=== PATIENT | female | born 1970 | race Caucasian/White ===

== ENCOUNTER 2017-04-09 07:07 | Day surgery (SDC) | payer OTHER ==
[~2017-04-09 07:07] MED LIST: Lactated Ringers 1,000 ML IV SCH; Lidocaine 1%/Sod Bicarbonate in NS 8.4% 1 ML Syringe IDERM PRN; Sodium Chloride 0.9% 10 ML Syringe FLUSH PRN
[2017-04-09] MEDS ORDERED: Bupivacaine 0.5% 30 ML SDV ONE ×3 (07:24→07:25)
[2017-04-09] MEDS ORDERED: Iodine/Sodium Iodide 2% Tincture 30 ML Bottle ONE (07:24)
[2017-04-09] MEDS ORDERED: Midazolam 1 MG/ML 2 ML SDV ONE (07:39)
[2017-04-09] MEDS ORDERED: Propofol 200 MG/20 ML SDV ONE (07:39)
[2017-04-09] MEDS ORDERED: fentaNYL 250 MCG/5 ML SDV ONE (07:39)
--- NOTE | 2017-04-09 07:40 | PCM.PREANE ---
Preanesthetic Assessment - Procedure Proposed Procedure: I & D abscess groin/mons - Anesthesia/Transfusion/Family Hx Anesthesia History: Prior Anesthesia Without Reaction (on epidural history) Family History of Anesthesia Reaction: No Transfusion History: No Prior Transfusion(s) Intubation History: Unknown - Review of Systems General: Fever (r/t infected mass ) Pulmonary: Other (undiagnosised suspected SALOME ) Cardiovascular: No Symptoms Gastrointestinal: Other (always having GERD ) Neurological: No Symptoms Other: Reports: None - Physical Assessment NPO Status Date: 04/08/17 NPO Status Time: 09:00 Pulse: 95 O2 Sat by Pulse Oximetry: 95 Respiratory Rate: 16 Blood Pressure: 159/105 Temperature: 37.3 C Height: 1.68 m Weight: 109.225 kg ASA Class: 3 Mental Status: Alert & Oriented x3 Airway Class: Mallampati = 3 Dentition: Reports: Normal Dentition Thyro-Mental Finger Breadths: 3 Mouth Opening Finger Breadths: 5 ROM/Head Extension: Full (with 2 chipped teeth upper and lower) Lungs: Clear to Auscultation, Normal Respiratory Effort Cardiovascular: Regular Rate, Regular Rhythm - Lab Values: Laboratory Last Values Urine HCG, Qual Negative (NEGATIVE) 04/09/17 07:15 - Allergies Allergies/Adverse Reactions: Allergies Allergy/AdvReac Type Severity Reaction Status Date / Time amoxicillin Allergy Cannot Verified 04/08/17 14:55 Remember bee pollen Allergy Cannot Verified 04/08/17 14:55 Remember - Blood Blood Available: No - Acknowledgements Anesthesia Type Planned: General Anesthesia Pt an Appropriate Candidate for the Planned Anesthesia: Yes Alternatives and Risks of Anesthesia Discussed w Pt/Guardian: Yes Pt/Guardian Understands and Agrees with Anesthesia Plan: Yes PreAnesthesia Questionnaire HEENT History: Reports: Allergic Rhinitis, Other (See Below) Other HEENT History: nasal congestion Cardiovascular History: Reports: Hypertension Respiratory History: Reports: Sleep Apnea Gastrointestinal History: Reports: None 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 (See Below) Other OB/BYN History: , genintal herpes, CINIII Musculoskeletal History: Reports: None Neurological History: Reports: None Psychiatric History: Reports: None Endocrine/Metabolic History: Reports: Obesity/BMI 30+ Hematologic History: Reports: None Immunologic History: Reports: None Oncologic (Cancer) History: Reports: None Dermatologic History: Reports: Cellulitis - Past Surgical History Head Surgeries/Procedures: Reports: None Cardiovascular Surgical History: Reports: None Respiratory Surgical History: Reports: None GI Surgical History: Reports: None Female Surgical History: Reports: Section, Cervical Cryotherapy Male Surgical History: Reports: None Endocrine Surgical History: Reports: None Neurological Surgical History: Reports: None Musculoskeletal Surgical History: Reports: None Oncologic Surgical History: Reports: None - SUBSTANCE USE Smoking Status *Q: Former Smoker Recreational Drug Use History: No - HOME MEDS Home Medications: Home Meds Acyclovir [Zovirax 5% Oint] 1 applic TOP QID 04/08/17 [History] Benzonatate [Benzonatate] 100 mg PO TID 04/08/17 [History] Cephalexin [Cephalexin] 500 mg PO QID 04/08/17 [History] EPINEPHrine [Epipen] 0.3 ml IM ONETIME PRN 04/08/17 [History] Fluticasone Propionate [Flonase Allergy Relief] 1 spray NASBOTH DAILY 04/08/17 [ History] Hydrochlorothiazide [Hydrochlorothiazide] 25 mg PO DAILY 04/08/17 [History] Losartan [Cozaar] 50 mg PO DAILY 04/08/17 [History] valACYclovir HCl [valACYclovir] 1,000 mg PO DAILY 04/08/17 [History] - CURRENT (IN HOUSE) MEDS Current Meds: Current Medications Lactated Ringer's (Ringers, Lactated) 1,000 mls @ 125 mls/hr IV ASDIRECTED JASSI Stop: 04/09/17 23:00 Lidocaine/Sodium Bicarbonate (Buffered Lidocaine 1% In Ns 8.4%) 0.25 ml IDERM ONETIME PRN PRN Reason: Prior to IV Start Stop: 04/09/17 18:00 Sodium Chloride (Saline Flush) 10 ml FLUSH ASDIRECTED PRN PRN Reason: Keep Vein Open Stop: 04/09/17 18:00 Discontinued Medications Fentanyl (Sublimaze) Confirm Administered Dose 250 mcg .ROUTE .STK-MED ONE Stop: 04/09/17 07:40 Lidocaine HCl (Xylocaine-Mpf 1%) Confirm Administered Dose 4 mls @ as directed .ROUTE .STK-MED ONE Stop: 04/09/17 07:43 Midazolam HCl (Versed 1 Mg/Ml) Confirm Administered Dose 2 mg .ROUTE .STK-MED ONE Stop: 04/09/17 07:40 Propofol (Diprivan 20 Ml) Confirm Administered Dose 400 mg .ROUTE .STK-MED ONE Stop: 04/09/17 07:40 Rocuronium Ebony (Zemuron) Confirm Administered Dose 50 mg .ROUTE .STK-MED ONE Stop: 04/09/17 07:46
[2017-04-09] MEDS ORDERED: Lidocaine 1% 4 ML ONE (07:42)
[2017-04-09] MEDS ORDERED: Rocuronium 50 MG/5 ML Vial ONE (07:45)
[2017-04-09] MEDS ORDERED: Ketorolac 30 MG/ML SDV ONE (08:37)
[2017-04-09] MEDS ORDERED: Ketamine 500 mg/10 ML MDV ONE (08:37)
[2017-04-09] MEDS ORDERED: Dexamethasone 4 MG/ML 5 ML MDV ONE (08:38)
[2017-04-09] MEDS ORDERED: Ondansetron 4 MG/2 ML SDV ONE (08:38)
--- NOTE | 2017-04-09 08:50 | PCM.OPNOTE ---
- General Post-Op/Procedure Note Date of Surgery/Procedure: 04/09/17 Operative Procedure(s): Incision and drainage complicated abscess [id number] Pre Op Diagnosis: Right groin (mons) cellulitis and abscess with multiple loculations Post-Op Diagnosis: Same Anesthesia Technique: General ET Tube Primary Surgeon: Jm Buchanan Secondary Surgeon: Marleny Calderon Anesthesia Provider: Yolanda Abdi Metal Stud Framer: Sha Jc (RAAD) Reason Metal Stud Framer Was Necessary: Asst. surgery decrease comorbidity and comortality Role of Metal Stud Framer: Asst. surgery decrease comorbidity and comortality Fluid Replacement, Intraop: 1,000 Output, Urine Amount: 0 EBL in mLs: 5 Drain/Tube Comments:: Iodoform gauze left in place with a sterile safety pin and 2 x 2 gauze Complications: None Condition: Good Free Text/Narrative:: Patient transported to the operating room and placed under general anesthesia in low dorsal lithotomy position and prepared and draped in a sterile fashion. SCDs in place and functioning prior surgery. Patient given Mefoxin 2 g intravenously prior surgery. Timeout performed confirming name, date of and procedure as incision and drainage of abscess cellulitis. The patient had Betadine poured over the affected area. Utilizing Crile clamp the small less than one by one milliliter opening was probed and approximately 2 cm opening obtained to allow drainage of the abscess cultures for aerobic and anaerobic bacteria taken. Irrigation with 3 L of saline with 9 mL of Betadine utilized. Order form gauze was then placed in the incision with sterile safety pin and 2 x 2 gauze. Sponge needle pack asthma sharp count correct 2. Patient transported postanesthesia care unit in satisfactory condition Given Tylenol 3 15 one or 2 by mouth every 6 hours when necessary pain maintain dressing on incision and return to clinic for follow-up on Wednesday04/12/17.
[2017-04-09] MEDS ORDERED: Ondansetron 4 MG/2 ML SDV IVPUSH PRN (09:03)
[2017-04-09] MEDS ORDERED: diphenhydrAMINE 50 MG/ML SDV IVPUSH PRN (09:03)
[2017-04-09] MEDS ORDERED: HYDROmorphone 0.5 MG/0.5 ML Syringe IVPUSH PRN (09:03)
[2017-04-09] MEDS ORDERED: fentaNYL 100 MCG/2 ML SDV IVPUSH PRN (09:03)
--- NOTE | 2017-04-09 09:05 | PCM.POSTAN ---
POST ANESTHESIA ASSESSMENT - MENTAL STATUS Mental Status: Alert - VITAL SIGNS Pulse Rate: 100 SaO2: 96 Resp Rate: 12 Blood Pressure: 141/92 Temperature: 99.1 C - RESPIRATORY Respiratory Status: Respiratory Rate WNL, Airway Patent, O2 Saturation Stable - CARDIOVASCULAR CV Status: Pulse Rate WNL, Blood Pressure Stable - GASTROINTESTINAL GI Status: No Symptoms - PAIN Pain Score: 2 - POST OP HYDRATION Hydration Status: Adequate & Stable
--- NOTE | 2017-04-09 10:23 | PCM48HPAN ---
Post Anesthesia Note - EVALUATION WITHIN 48HRS OF ANESTHETIC Vital Signs in Normal Range: Yes Patient Participated in Evaluation: Yes Respiratory Function Stable: Yes Airway Patent: Yes Cardiovascular Function Stable: Yes Hydration Status Stable: Yes Pain Control Satisfactory: Yes Nausea and Vomiting Control Satisfactory: Yes Mental Status Recovered: Yes Pulse Rate: 100 Resp Rate: 18 Temperature: 99.1 C Blood Pressure: 141/92
[2017-04-09] MEDS ORDERED: Acetaminophen/Codeine 300-30 MG Tab PO ONE (10:30)
[2017-04-09] MEDS ORDERED: Lactated Ringers 1,000 ML ONE (11:34)
== END 2017-04-09 10:50 | disposition home or self-care (01) ==
LOC: JD.SDS 07:07
PROVIDERS: ATTEND Obstetrics & Gynecology
DX: L02.214 Cutaneous abscess of groin (principal); L03.314 Cellulitis of groin; J30.9 Allergic rhinitis, unspecified; I10 Essential (primary) hypertension; G47.30 Sleep apnea, unspecified; E66.9 Obesity, unspecified; Z88.1 Allergy status to other antibiotic agents; Z91.09 Other allergy status, other than to drugs and biological substances; Z68.30 Body mass index [BMI] 30.0-30.9, adult; Z79.51 Long term (current) use of inhaled steroids; Z79.899 Other long term (current) drug therapy
CPT/HCPCS: 10061; 36415; 81025; 83036; 85025; 86850; 86900; 86901; 87075; 87205; A9270; J0694; J1100; J1170; J1885; J2250; J2405; J3010; J7120; J2704

== ENCOUNTER 2024-07-07 07:57 | Emergency (ER) | payer OTHER ==
[2024-07-07] MEDS: Ondansetron 4 MG/2 ML SDV IVPUSH ONE ×2 (08:46→11:20)
[2024-07-07] MEDS: Sodium Chloride 0.9% 500 ML IV SCH (08:46)
[2024-07-07] MEDS: HYDROmorphone 1 MG/ML Syringe IVPUSH ONE ×2 (08:46→10:55)
[2024-07-07 08:49] LABS: BASOPHILS PERCENT AUTO 0.3 % (0.0-1.0); HEMATOCRIT 41.8 % (37.0-47.0); HEMOGLOBIN 14.8 gm/dl (12.0-16.0); IMMATURE GRAN ABSOLUTE AUTO 0.09 K/mm3 (0.00-0.05); IMMATURE GRAN PERCENT AUTO 0.9 % (0.0-0.4); LYMPHOCYTES ABSOLUTE AUTO 0.9 K/mm3 (1.0-4.8); LYMPHOCYTES PERCENT AUTO 8.7 % (24.0-44.0); MEAN CORPUSCULAR HEMOGLOBIN 34.5 pg (28.0-32.0); MEAN CORPUSCULAR HGB CONC 35.4 g/dl (32.0-36.0); MEAN CORPUSCULAR VOLUME 97.4 fl (83.0-99.0); MEAN PLATELET VOLUME 9.8 fl (9.4-12.3); MONOCYTES PERCENT AUTO 10.1 % (0.0-8.0); NEUTROPHILS ABSOLUTE AUTO 8.2 K/mm3 (1.8-7.7); PLATELET COUNT,PLT 209 K/mm3 (150-400); RED BLOOD CELL COUNT 4.29 M/mm3 (4.10-5.30); WHITE BLOOD CELL COUNT,WBC 10.23 K/mm3 (3.9-11.3)
[2024-07-07 09:06] LABS: ANION GAP 20.7 (5-15); BUN/CREATININE RATIO 8.4 (14-18); CALCIUM 9.7 mg/dL (8.5-10.1); CREATININE 2.5 mg/dL (0.55-1.02); EST CRCL DRUG DOSING (CG) 23.42 mL/min; POTASSIUM,K 3.7 mEq/L (3.5-5.1)
[2024-07-07] MEDS: Propofol 200 MG/20 ML SDV IVPUSH ONE (09:23)
[2024-07-07] MEDS: Ondansetron 4 MG/2 ML SDV ONE (11:23)
== END 2024-07-07 11:33 | disposition home or self-care (01) ==
LOC: JD.ED 07:57
DX: S82.891A Other fracture of right lower leg, initial encounter for closed fracture (principal); I10 Essential (primary) hypertension; K21.9 Gastro-esophageal reflux disease without esophagitis; E11.9 Type 2 diabetes mellitus without complications; E66.9 Obesity, unspecified; Z86.16 Personal history of COVID-19; Z79.899 Other long term (current) drug therapy; Z91.030 Bee allergy status; Z88.5 Allergy status to narcotic agent; Z88.0 Allergy status to penicillin; W19.XXXA Unspecified fall, initial encounter
CPT/HCPCS: 27788; 36415; 73590; 73600; 80048; 85025; 96361; 96374; 96375; 96376; 99152; 99284; J1171; J2405; J2704; J7030

== ENCOUNTER 2024-07-20 07:15 | Day surgery (SDC) | payer OTHER ==
[~2024-07-20 07:15] MED LIST changes: -Lactated Ringers 1,000 ML IV SCH; -Lidocaine 1%/Sod Bicarbonate in NS 8.4% 1 ML Syringe IDERM PRN; +Sodium Chloride 0.9% 10 ML Syringe FLUSH SCH
[2024-07-20] MEDS ORDERED: Sodium Chloride 0.9% 100 ML IV ONE (07:16)
[2024-07-20] MEDS ORDERED: Lactated Ringers 1,000 ML ONE (07:17)
[2024-07-20] MEDS ORDERED: Midazolam 1 MG/ML 2 ML SDV ONE (07:17)
[2024-07-20] MEDS ORDERED: Dexamethasone 4 MG/ML 5 ML MDV ONE (07:17)
[2024-07-20] MEDS ORDERED: Lidocaine 1% 2 ML ONE (07:17)
[2024-07-20] MEDS ORDERED: Propofol 200 MG/20 ML SDV ONE (07:17)
[2024-07-20] MEDS ORDERED: ceFAZolin 2 GM Vial ONE (07:17)
[2024-07-20] MEDS ORDERED: Ondansetron 4 MG/2 ML SDV ONE (07:17)
[2024-07-20] MEDS ORDERED: fentaNYL 250 MCG/5 ML SDV ONE (07:18)
[2024-07-20] MEDS: Lactated Ringers 1,000 ML IV SCH (07:30)
[2024-07-20] MEDS: VANCOmycin 1.25 GM/250 ML 1.25 GM in Premix Bag 1 BAG IV ONE (08:23)
[2024-07-20] MEDS ORDERED: ePHEDrine 50 MG/ML SDV ONE (09:10)
[2024-07-20] MEDS ORDERED: Phenylephrine 1% 10 MG/ML SDV ONE (09:16)
[2024-07-20] MEDS ORDERED: Ketorolac 30 MG/ML SDV ONE (10:15)
[2024-07-20] MEDS ORDERED: Ondansetron 4 MG/2 ML SDV IVPUSH PRN (10:26)
[2024-07-20] MEDS ORDERED: fentaNYL 100 MCG/2 ML SDV IVPUSH PRN (10:26)
[2024-07-20] MEDS ORDERED: HYDROmorphone 0.5 MG/0.5 ML Syringe IVPUSH PRN (10:26)
== END 2024-07-20 12:09 | disposition home or self-care (01) ==
LOC: JD.SDS 07:15
PROVIDERS: ATTEND Orthopaedic Surgery
DX: S82.831A Other fracture of upper and lower end of right fibula, initial encounter for closed fracture (principal); E11.9 Type 2 diabetes mellitus without complications; I10 Essential (primary) hypertension; Z79.4 Long term (current) use of insulin; Z88.1 Allergy status to other antibiotic agents; Z88.5 Allergy status to narcotic agent; Z87.891 Personal history of nicotine dependence; Z91.030 Bee allergy status; Z79.899 Other long term (current) drug therapy
CPT/HCPCS: 27792; 76000; C1713; C1776; J0690; J1100; J1885; J2003; J2250; J2371; J2405; J2704; J3010; J3372; J7120; 01480; 64450; J3490